=== PATIENT | male | born 1975 ===

== ENCOUNTER 2018-01-31 11:52 | Inpatient (IN) | payer OTHER ==
[~2018-01-31] VITALS: Ht 170.2 cm; Wt 68.0 kg
[2018-01-31] MEDS ORDERED: DOXYCYCLINE HY100 MG PO (12:48)
== END 2018-02-09 17:36 | disposition home or self-care (01) | DRG 869 ==
LOC: ER 11:52 → SEC-K 20:31 → MEDJ 20:31
PROC: BW40ZZZ Ultrasonography of Abdomen (ICD-10-PCS; 2018-02-01)
PROC: 8E0ZXY6 Isolation (ICD-10-PCS; principal; 2018-02-02)
DX: B53.8 Other malaria, not elsewhere classified (principal); D69.49 Other primary thrombocytopenia